=== PATIENT | female | born 1950 | race Two or more races ===

== ENCOUNTER 2022-02-13 12:28 | Emergency (ER) | payer OTHER ==
[~2022-02-13] VITALS: Ht 157.5 cm; Wt 69.4 kg
[2022-02-13] MEDS ORDERED: JANUMET XR 50-1 EAC1 PO (13:41)
[2022-02-13] MEDS ORDERED: LOSARTAN-HCTZ1 EAC2 PO (13:41)
[2022-02-13] MEDS ORDERED: SIMVASTATIN10 MG PO (13:41)
[2022-02-13] MEDS ORDERED: FISH OIL + D31 EACH PO (13:41)
[2022-02-13] MEDS ORDERED: CALCIUM500 M2 PO (13:42)
[2022-02-13] MEDS ORDERED: VITAMIN E400 UNI7 PO (13:42)
[2022-02-13] MEDS ORDERED: EVISTA60 MG PO (13:42)
== END 2022-02-13 18:35 | disposition home or self-care (01) ==
LOC: ER 12:28
DX: N39.0 Urinary tract infection, site not specified (principal); E11.9 Type 2 diabetes mellitus without complications; Z79.84 Long term (current) use of oral hypoglycemic drugs; I10 Essential (primary) hypertension; Z88.6 Allergy status to analgesic agent; Z88.2 Allergy status to sulfonamides